=== PATIENT | male | born 1960 | race Hispanic/Latino ===

== ENCOUNTER 2017-02-03 21:37 | Inpatient (IN) | payer MEDICAID ==
[2017-02-03 22:53] LABS: BASO % 0.7 % (0.0-2.0); EOS # 0.2 K/uL (0.0-0.7); EOS % 2.7 % (0.0-4.0); HEMATOCRIT 37.6 % (35.0-51.0); LYMPH # 1.3 K/uL (1.0-4.3); LYMPH % 19.6 % (20.0-40.0); MEAN CORPUSCULAR HEMOGLOBIN 25.6 pg (27.0-31.0); MEAN CORPUSCULAR HGB CONC 32.8 g/dL (33.0-37.0); MEAN PLATELET VOLUME 8.8 fL (7.2-11.7); MONO # 0.6 K/uL (0.0-0.8); MONO % 8.1 % (0.0-10.0); NRBC % 0.2 % (0.0-2.0); RED CELL DISTRIBUTION WIDTH 17.2 % (11.5-14.5); WHITE BLOOD COUNT 6.8 K/uL (4.8-10.8)
[2017-02-03 23:03] LABS: RBC URINE 1 /hpf (0-3); URINE BILIRUBIN NEGATIVE (NEGATIVE); URINE BLOOD NEGATIVE (NEGATIVE); URINE COLOR Yellow (YELLOW); URINE GLUCOSE (UA) NORMAL (Normal); URINE KETONE NEGATIVE (NEGATIVE); URINE LEUKOCYTE ESTERASE NEG Leu/uL (Negative); URINE PROTEIN NEGATIVE (NEGATIVE); URINE UROBILINOGEN NORMAL mg/dL (0.2-1.0); WBC URINE 1 /hpf (0-5)
[2017-02-03 23:08] LABS: CHLORIDE 101 mmol/L (98-107)
[2017-02-03 23:09] LABS: POTASSIUM 3.8 mmol/L (3.6-5.2); SODIUM 138 mmol/L (132-148)
[2017-02-03 23:11] LABS: ALB/GLOB RATIO 1.1 (1.0-2.1); AST/SGOT 29 U/L (17-59); BILIRUBIN,TOTAL 0.5 mg/dL (0.2-1.3); CARBON DIOXIDE 27 mmol/L (22-30); GFR AFRICAN-AMERICAN > 60; TOTAL PROTEIN 7.4 g/dL (6.3-8.3)
[2017-02-03 23:12] LABS: ALKALINE PHOSPHATASE 61 U/L (38-126); ALT/SGPT 25 U/L (21-72); BLOOD UREA NITROGEN 21 mg/dL (9-20); GLUCOSE,RANDOM 85 mg/dL (75-110)
--- NOTE | 2017-02-03 23:21 | C.PDOC ---
History Of Present Illness 56 year old male presents to the ED with complaints of swelling to a chronic wound on the left lower medial aspect of the leg. Patient states the wound has been present for 8 months and thought the wound would resolve on its own but it has remained persistent. He notes he alternates his time between [place] and [place]. Patient saw his doctor in [place] two weeks ago and doctor suggested hyperbaric therapy for the wound. However, patient came to [place] and does not have a doctor here and could not follow up. He denies any chest pain, shortness of breath, fever, or chills. Time Seen by Provider: 02/03/17 22:34 Chief Complaint (Nursing): Lower Extremity Problem/Injury History Per: Patient History/Exam Limitations: no limitations Onset/Duration Of Symptoms: Persistent (8 months ) Current Symptoms Are (Timing): Still Present Recent travel outside of the [facility]: No Past Medical History Reviewed: Historical Data, Nursing Documentation, Vital Signs Vital Signs: Last Vital Signs Temp 97.5 F L 02/03/17 21:46 Pulse 54 L 02/03/17 23:18 Resp 19 02/03/17 23:18 BP 131/73 02/03/17 23:18 Pulse Ox 95 02/03/17 23:53 Family History: States: Unknown Family Hx - Social History Hx Alcohol Use: No Hx Substance Use: No - Immunization History Hx Tetanus Toxoid Vaccination: No Hx Influenza Vaccination: No Hx Pneumococcal Vaccination: No Review Of Systems Constitutional: Negative for: Fever, Chills, Sweats Cardiovascular: Negative for: Chest Pain, Palpitations Respiratory: Negative for: Cough, Shortness of Breath Gastrointestinal: Negative for: Nausea, Vomiting, Abdominal Pain, Diarrhea Musculoskeletal: Positive for: Leg Pain (left leg pain and swelling to wound on medial left lower leg ) Neurological: Negative for: Headache Physical Exam - Physical Exam Appears: Non-toxic, No Acute Distress Skin: Warm, Dry, Other (left leg is red, shallow wound present to the left lower medial aspect of the leg that appears chronic ) Head: Atraumatic Oral Mucosa: Moist Neck: Supple Chest: Symmetrical, No Deformity Cardiovascular: Rhythm Regular Respiratory: No Rales, No Rhonchi, No Stridor, No Wheezing Gastrointestinal/Abdominal: Soft, No Tenderness, No Distention, No Guarding, No Rebound Extremity: Swelling (swelling to left lower leg worse than patient usually has ) , Other (Venous stasis and chronic edema to left leg; statis pigmentation from the left knee down. ) ED Course And Treatment - Laboratory Results Result Diagrams: 02/03/17 22:50 02/03/17 22:50 Lab Interpretation: No Acute Changes O2 Sat by Pulse Oximetry: 95 Pulse Ox Interpretation: Normal - Radiology CXR: Interpreted by Me CXR Interpretation: Yes: No Acute Disease - Physician Consult Information Time Consulting Physician Contacted: 00:00 Physician Contacted: Magan Glover Outcome Of Conversation: Patient to be admitted for IV antibiotics for cellulitis and work-up of possible DVT. Disposition - Disposition Disposition: HOSPITALIZED Disposition Time: 00:01 Condition: STABLE - POA Present On Arrival: None - Clinical Impression Clinical Impression: Cellulitis and abscess of left leg, Stasis ulcer of ankle - Scribe Statement The provider has reviewed the documentation as recorded by the Scribe Stephanie Sen All medical record entries made by the Andresibvicente were at my direction and personally dictated by me. I have reviewed the chart and agree that the record accurately reflects my personal performance of the history, physical exam, medical decision making, and the department course for this patient. I have also personally directed, reviewed, and agree with the discharge instructions and disposition.
[2017-02-04 00:51] VITALS: RESP 20
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
[2017-02-04 08:12] LABS: BASO % 1.2 % (0.0-2.0); EOS # 0.2 K/uL (0.0-0.7); EOS % 5.6 % (0.0-4.0); HEMATOCRIT 36.8 % (35.0-51.0); LYMPH % 29.5 % (20.0-40.0); MEAN CELL VOLUME 78.1 fL (80.0-94.0); MEAN CORPUSCULAR HEMOGLOBIN 25.6 pg (27.0-31.0); MEAN CORPUSCULAR HGB CONC 32.8 g/dL (33.0-37.0); MEAN PLATELET VOLUME 8.7 fL (7.2-11.7); MONO # 0.4 K/uL (0.0-0.8); MONO % 10.6 % (0.0-10.0); NRBC % 0.1 % (0.0-2.0); RED CELL DISTRIBUTION WIDTH 16.7 % (11.5-14.5); WHITE BLOOD COUNT 3.5 K/uL (4.8-10.8)
--- NOTE | 2017-02-04 09:29 | RAD ---
PROCEDURE: CHEST RADIOGRAPH, 1 VIEW HISTORY: Shortness of breath COMPARISON: None available. FINDINGS: LUNGS: Biapical pleural thickening with upper lobe granulomatous changes. Mild venous congestion. Right hilar prominence. PLEURA: As above. CARDIOVASCULAR: Tortuous aorta. Mild cardiomegaly. OSSEOUS STRUCTURES: Degenerative changes in the spine and shoulders. VISUALIZED UPPER ABDOMEN: Normal. OTHER FINDINGS: None. IMPRESSION: Biapical pleural thickening with upper lobe granulomatous changes. Mild venous congestion. Right hilar prominence.
[2017-02-04 09:38] LABS: CHLORIDE 101 mmol/L (98-107); POTASSIUM 3.6 mmol/L (3.6-5.2); SODIUM 136 mmol/L (132-148)
[2017-02-04 09:40] LABS: AST/SGOT 31 U/L (17-59); BILIRUBIN,TOTAL 0.4 mg/dL (0.2-1.3); CARBON DIOXIDE 24 mmol/L (22-30); GFR AFRICAN-AMERICAN > 60
[2017-02-04 09:41] LABS: ALKALINE PHOSPHATASE 58 U/L (38-126); ALT/SGPT 28 U/L (21-72); BLOOD UREA NITROGEN 19 mg/dL (9-20); CALCIUM 8.1 mg/dl (8.6-10.4); GLUCOSE,RANDOM 104 mg/dL (75-110); PHOSPHOROUS 3.4 mg/dL (2.5-4.5); TOTAL PROTEIN 6.6 g/dL (6.3-8.3)
[2017-02-04 09:42] LABS: MAGNESIUM 1.8 mg/dL (1.6-2.3)
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
[2017-02-04] MEDS: Enoxaparin 40 mg Syringe SC SCH (10:49)
[2017-02-04] MEDS: Saccharomyces Boulardi 250 mg Cap PO SCH ×2 (11:37→17:13)
[2017-02-04] MEDS: Aztreonam 1 GM in Sodium Chloride 0.9% 100 ML IVPB SCH ×2 (13:54→20:11)
--- NOTE | 2017-02-04 14:13 | CP.PCM.CON ---
History of Present Illness - History of Present Illness History of Present Illness: Patient is a 56 y/o male seen bedside regarding left leg swelling, redness and a left ankle ulcer. Patient is seen resting in bed in [facility]. He states that yesterday his leg became very swollen, but mentions redness and discoloration has been chronic. Patient states the wound has been present for 8 months and started due to irritation caused by a shoe he was wearing. Patient relates a history of seeing several doctors and he was told that he has "venous stasis". States he has been offered many treatment options, including topical medications , compressive therapy, hyperbaric, but has not tried anything consistently because he believes it is best to "let it heal on its own." He notes he alternates his time between [place], [place] and [place], but has moved back here for the summer. Denies F/C/N/V/SOB. Review of Systems - Constitutional Constitutional: As Per HPI Past Patient History - Past Medical History & Family History Past Medical History?: Yes - Past Social History Smoking Status: Former Smoker - CARDIAC Hx Cardiac Disorders: No - PULMONARY Hx Respiratory Disorders: No - NEUROLOGICAL Hx Neurological Disorder: No - HEENT Hx HEENT Problems: No - RENAL Hx Chronic Kidney Disease: No - ENDOCRINE/METABOLIC Hx Endocrine Disorders: No - HEMATOLOGICAL/ONCOLOGICAL Hx Blood Disorders: No - INTEGUMENTARY Hx Dermatological Problems: No - MUSCULOSKELETAL/RHEUMATOLOGICAL Other/Comment: chronic left hip problem - GASTROINTESTINAL Hx Gastrointestinal Disorders: No - GENITOURINARY/GYNECOLOGICAL Hx Genitourinary Disorders: No - PSYCHIATRIC Hx Substance Use: No - SURGICAL HISTORY Hx Surgeries: Yes (Trauma) - ANESTHESIA Hx Anesthesia: Yes Hx Anesthesia Reactions: No Hx Malignant Hyperthermia: No Has any member of the family had a problem w/ anesthesia?: No Meds Allergies/Adverse Reactions: Allergies Allergy/AdvReac Type Severity Reaction Status Date / Time ceftriaxone [From Rocephin] Allergy ITCHING Verified 02/04/17 01:51 - Medications Medications: Current Medications Enoxaparin Sodium (Lovenox) 40 mg SC DAILY [facility] Last Admin: 02/04/17 10:49 Dose: 40 mg Famotidine (Pepcid) 20 mg PO BID [facility] Last Admin: 02/04/17 10:46 Dose: Not Given Vancomycin HCl 1 gm/ Sodium (Chloride) 250 mls @ 166.7 mls/hr IVPB Q24H [facility] Last Admin: 02/04/17 01:56 Dose: 166.7 mls/hr Aztreonam 1 gm/ Sodium (Chloride) 100 mls @ 200 mls/hr IVPB Q8H [facility] Last Admin: 02/04/17 13:54 Dose: 200 mls/hr Ketorolac Tromethamine (Toradol) 30 mg IV Q6 PRN PRN Reason: Pain, severe (8-10) Last Admin: 02/04/17 09:03 Dose: 30 mg Saccharomyces Boulardii (Florastor) 250 mg PO BID [facility] Last Admin: 02/04/17 11:37 Dose: Not Given Physical Exam - Constitutional Appears: No Acute Distress - Extremities Exam Additional comments: LLE exam: Derm: Diffuse moderate edema from foot to knee, with erythema and chronic hyperpigmentation from foot to tibial midshaft. Superficial ulceration inferior to medial malleolus with granular eschar, no drainage at this time, no malodor. Surrounding skin thin, shiny with diffuse xerosis. Vascular: DP pulse 2/4, PT pulse non-palpable secondary to wound, CFT <3sec, temperature unremarkable. Neuro: Gross sensation intact. MSK: MMT 4/5 in all directions, decreased ROM at the ankle joint, hammertoe deformities present 2-5. Pain on compression of calf. - Neurological Exam Neurological exam: Alert, Oriented x3 Results - Vital Signs Recent Vital Signs: Last Vital Signs Temp 97.7 F 02/04/17 08:27 Pulse 54 L 02/04/17 08:27 Resp 20 02/04/17 08:27 BP 107/64 02/04/17 08:27 Pulse Ox 96 02/04/17 08:27 - Labs Result Diagrams: 02/04/17 07:57 02/04/17 07:57 Labs: Laboratory Results - last 24 hr 02/04/17 02/04/17 07:57 07:57 WBC 3.5 L RBC 4.71 Hgb 12.1 Hct 36.8 MCV 78.1 L MCH 25.6 L MCHC 32.8 L RDW 16.7 H Plt Count 167 MPV 8.7 Neut % (Auto) 53.1 Lymph % (Auto) 29.5 Humphreys % (Auto) 10.6 H Eos % (Auto) 5.6 H Baso % (Auto) 1.2 Neut # 1.8 Lymph # 1.0 Humphreys # 0.4 Eos # 0.2 Baso # 0.0 Sodium 136 Potassium 3.6 Chloride 101 Carbon Dioxide 24 Anion Gap 15 BUN 19 Creatinine 0.7 L Est GFR ( Amer) > 60 Est GFR (Non-Af Amer) > 60 Random Glucose 104 Calcium 8.1 L Phosphorus 3.4 Magnesium 1.8 Total Bilirubin 0.4 AST 31 ALT 28 Alkaline Phosphatase 58 Total Protein 6.6 Albumin 3.3 L Globulin 3.2 Albumin/Globulin Ratio 1.0 Assessment & Plan - Assessment and Plan (Free Text) Assessment: 56 y/o male with left ankle ulceration and chronic changes secondary to venous stasis; rule out DVT. Plan: -evaluated and treated with all questions addressed and answered. -discussed with Dr. Landa. -explained to patient etiology of disease and ideal treatment which consists of compressive dressing and topical medication, but patient refusing any treatment of ulceration at this time and acknowledges he is refusing recommended treatment. -will await results of Venous duplex to rule out DVT. -gave patient aloe moisturizer and educated to use on dry skin, but not on ulceration. -will continue to monitor while in hospital.
--- NOTE | 2017-02-04 16:46 | RAD ---
PROCEDURE: Left Ankle Radiographs. HISTORY: r/o osteo COMPARISON: None FINDINGS: BONES: Mild generalized osteopenia. . No fracture. No periosteal reaction or gross cortical interruption appreciated JOINTS: Normal. No osteoarthritis. Ankle mortise maintained. Talar dome intact SOFT TISSUES: Diffuse soft tissue mild edema of the overall subcutaneous tissues -lymphedema and/or cellulitis is consistent with this. Correlate clinically. No specific ulcer site is provided or grossly appreciated OTHER FINDINGS: None. IMPRESSION: No gross radiographic evidence of osteomyelitis. . Lymphedema and/or cellulitis.
--- NOTE | 2017-02-04 16:49 | RAD ---
PROCEDURE: Bilateral Feet Radiographs. HISTORY: r/o osteo COMPARISON: None. FINDINGS: BONES: Right Foot: Normal. No fracture. Left Foot: Normal. No fracture. No gross periosteal reaction. No gross cortical interruption JOINTS: Right Foot: Normal. No osteoarthritis. Left Foot: Normal. No osteoarthritis. SOFT TISSUES: Diffuse lower leg and diffuse foot soft tissue swelling appearing mostly confined to the subcutaneous tissues. No history of any focal ulcers provided. No gross focal ulceration is appreciated OTHER FINDINGS: None. IMPRESSION: No gross periosteal or gross cortical interruption. No discrete ulcer appreciated. No history provided of a discrete ulcer Bilateral lower leg and bilateral foot nonspecific soft tissue edema in a finding consistent with lymphedema and/or cellulitis. Correlate clinically.
--- NOTE | 2017-02-04 16:50 | RAD ---
PROCEDURE: Radiographs of the left tibia and fibula. HISTORY: r/o osteo COMPARISON: None available. TECHNIQUE: Frontal and lateral views obtained. FINDINGS: BONES: No fracture or destructive lesion. No periosteal reaction or cortical destruction JOINT SPACES: Unremarkable. OTHER FINDINGS: No gross soft tissue ulceration seen. There is diffuse and circumferential Ene subcutaneous edema some with either lymphedema and/or cellulitis. Some of the serpiginous subcutaneous soft tissue densities of the proximal lower leg bordering the tibia may relate to varicosities here. Correlate clinically IMPRESSION: No periosteal reaction or cortical interruption seen to suggest osteomyelitis. Soft tissue changes consistent with diffuse lymphedema and/or cellulitis -correlate clinically Possible proximal medial subcutaneous varicosities
[2017-02-04 17:48] LABS: THYROID STIMULATING HORMONE 0.25 mIU/L (0.46-4.68)
[2017-02-04 18:22] LABS: FOLATE 5.7 ng/mL
[2017-02-05] MEDS: Aztreonam 1 GM in Sodium Chloride 0.9% 100 ML IVPB SCH ×2 (02:33→11:00)
[2017-02-05 07:17] LABS: EOS # 0.1 K/uL (0.0-0.7); EOS % 3.9 % (0.0-4.0); HEMATOCRIT 36.8 % (35.0-51.0); LYMPH # 1.1 K/uL (1.0-4.3); LYMPH % 31.4 % (20.0-40.0); MEAN CELL VOLUME 78.4 fL (80.0-94.0); MEAN CORPUSCULAR HEMOGLOBIN 25.1 pg (27.0-31.0); MEAN PLATELET VOLUME 9.3 fL (7.2-11.7); MONO # 0.4 K/uL (0.0-0.8); MONO % 10.2 % (0.0-10.0); NRBC % 0.2 % (0.0-2.0); RED CELL DISTRIBUTION WIDTH 17.3 % (11.5-14.5); WHITE BLOOD COUNT 3.6 K/uL (4.8-10.8)
[2017-02-05 07:38] LABS: CHLORIDE 108 mmol/L (98-107); POTASSIUM 4.1 mmol/L (3.6-5.2); SODIUM 140 mmol/L (132-148)
[2017-02-05 07:40] LABS: BILIRUBIN,TOTAL 0.5 mg/dL (0.2-1.3); CARBON DIOXIDE 24 mmol/L (22-30); GFR AFRICAN-AMERICAN > 60
[2017-02-05 07:41] LABS: ALKALINE PHOSPHATASE 51 U/L (38-126); ALT/SGPT 30 U/L (21-72); AST/SGOT 32 U/L (17-59); BLOOD UREA NITROGEN 21 mg/dL (9-20); CALCIUM 8.5 mg/dl (8.6-10.4); GLUCOSE,RANDOM 91 mg/dL (75-110); PHOSPHOROUS 3.4 mg/dL (2.5-4.5); TOTAL PROTEIN 6.4 g/dL (6.3-8.3)
[2017-02-05] MEDS: Enoxaparin 40 mg Syringe SC SCH (10:31)
[2017-02-05] MEDS: Saccharomyces Boulardi 250 mg Cap PO SCH (11:00)
[2017-02-05 17:00] VITALS: BP 115/57; PULSE 58; TEMP 98.5; O2SAT 96
--- NOTE | 2017-02-05 23:12 | CP.PCM.DIS ---
Provider - Provider Date of Admission: 02/04/17 00:02 Attending physician: Genia Torres DO Time Spent in preparation of Discharge (in minutes): 45 Diagnosis - Discharge Diagnosis (1) Cellulitis and abscess of left leg Status: Acute (2) Stasis ulcer of ankle Status: Acute Hospital Course - Lab Results Lab Results: Micro Results 02/04/17 08:30 Blood-Venous Blood Culture - Preliminary NO GROWTH AFTER 24 HOURS 02/04/17 07:57 Blood-Venous Blood Culture - Preliminary NO GROWTH AFTER 24 HOURS Most Recent Lab Values WBC 3.6 K/uL (4.8-10.8) L 02/05/17 07:04 RBC 4.69 Mil/uL (4.40-5.90) 02/05/17 07:04 Hgb 11.8 g/dL (12.0-18.0) L 02/05/17 07:04 Hct 36.8 % (35.0-51.0) 02/05/17 07:04 MCV 78.4 fL (80.0-94.0) L 02/05/17 07:04 MCH 25.1 pg (27.0-31.0) L 02/05/17 07:04 MCHC 32.0 g/dL (33.0-37.0) L 02/05/17 07:04 RDW 17.3 % (11.5-14.5) H 02/05/17 07:04 Plt Count 143 K/uL (130-400) 02/05/17 07:04 MPV 9.3 fL (7.2-11.7) 02/05/17 07:04 Neut % (Auto) 53.5 % (50.0-75.0) 02/05/17 07:04 Lymph % (Auto) 31.4 % (20.0-40.0) 02/05/17 07:04 [place] % (Auto) 10.2 % (0.0-10.0) H 02/05/17 07:04 Eos % (Auto) 3.9 % (0.0-4.0) 02/05/17 07:04 Baso % (Auto) 1.0 % (0.0-2.0) 02/05/17 07:04 Neut # 1.9 K/uL (1.8-7.0) 02/05/17 07:04 Lymph # 1.1 K/uL (1.0-4.3) 02/05/17 07:04 [place] # 0.4 K/uL (0.0-0.8) 02/05/17 07:04 Eos # 0.1 K/uL (0.0-0.7) 02/05/17 07:04 Baso # 0.0 K/uL (0.0-0.2) 02/05/17 07:04 Sodium 140 mmol/L (132-148) 02/05/17 07:04 Potassium 4.1 mmol/L (3.6-5.2) 02/05/17 07:04 Chloride 108 mmol/L (98-107) H 02/05/17 07:04 Carbon Dioxide 24 mmol/L (22-30) 02/05/17 07:04 Anion Gap 12 (10-20) 02/05/17 07:04 BUN 21 mg/dL (9-20) H 02/05/17 07:04 Creatinine 0.8 MG/DL (0.8-1.5) 02/05/17 07:04 Est GFR ( Amer) > 60 02/05/17 07:04 Est GFR (Non-Af Amer) > 60 02/05/17 07:04 Random Glucose 91 mg/dL (75-110) 02/05/17 07:04 Hemoglobin A1c 5.5 % (4.2-6.5) 02/04/17 17:02 Calcium 8.5 mg/dl (8.6-10.4) L 02/05/17 07:04 Phosphorus 3.4 mg/dL (2.5-4.5) 02/05/17 07:04 Magnesium 2.0 mg/dL (1.6-2.3) 02/05/17 07:04 Total Bilirubin 0.5 mg/dL (0.2-1.3) 02/05/17 07:04 AST 32 U/L (17-59) 02/05/17 07:04 ALT 30 U/L (21-72) 02/05/17 07:04 Alkaline Phosphatase 51 U/L (38-126) 02/05/17 07:04 NT-Pro-B Natriuret Pep 70.0 pg/mL (0-900) 02/03/17 22:50 Total Protein 6.4 g/dL (6.3-8.3) 02/05/17 07:04 Albumin 3.2 g/dL (3.5-5.0) L 02/05/17 07:04 Globulin 3.2 gm/dL (2.2-3.9) 02/05/17 07:04 Albumin/Globulin Ratio 1.0 (1.0-2.1) 02/05/17 07:04 Vitamin B12 372 pg/mL (239-931) 02/04/17 17:02 Folate 5.7 ng/mL 02/04/17 17:02 Free T4 0.90 ng/dL (0.78-2.19) 02/05/17 13:43 TSH 3rd Generation 0.30 mIU/L (0.46-4.68) L 02/05/17 13:43 Urine Color Yellow (YELLOW) 02/03/17 22:43 Urine Clarity Clear (Clear) 02/03/17 22:43 Urine pH 5.0 (5.0-8.0) 02/03/17 22:43 Ur Specific [place] 1.020 (1.003-1.030) 02/03/17 22:43 Urine Protein Negative mg/dL (NEGATIVE) 02/03/17 22:43 Urine Glucose (UA) Normal mg/dL (Normal) 02/03/17 22:43 Urine Ketones Negative mg/dL (NEGATIVE) 02/03/17 22:43 Urine Blood Negative (NEGATIVE) 02/03/17 22:43 Urine Nitrate Negative (NEGATIVE) 02/03/17 22:43 Urine Bilirubin Negative (NEGATIVE) 02/03/17 22:43 Urine Urobilinogen Normal mg/dL (0.2-1.0) 02/03/17 22:43 Ur Leukocyte Esterase Neg Elijah/uL (Negative) 02/03/17 22:43 Urine WBC (Auto) 1 /hpf (0-5) 02/03/17 22:43 Urine RBC (Auto) 1 /hpf (0-3) 02/03/17 22:43 - Hospital Course Hospital Course: As per admission: CC: "Leg is swollen" HPI: 56 year old male presents to the ED with complaints of swelling to a chronic wound on the left lower medial aspect of the leg. He states his leg has become very swollen and red starting at 6PM yesterday. Patient states the wound has been present for 8 months and thought the wound would resolve on its own but it has remained persistent. He notes he alternates his time between [place] and [place] but has now moved back here. Patient saw his doctor in [place] two weeks ago and doctor suggested hyperbaric therapy for the wound. However, patient came to [place] and does not have a doctor here and could not follow up. He was told that he has "venous stasis". He denies any chest pain, shortness of breath, fever, or chills. He has not other complaints. Hospital Course: Patient was admitted on 02/04/17 with left Foot X-ray showing no gross periosteal or gross cortical interruption. No discrete ulcer appreciated. Bilateral lower leg and bilateral lower foot nonspecific soft tissue edema in a finding consist with lymph edema and or cellulitis. Left Ankle X-ray showed no gross radiographic evidence of osteomyelitis and left Tib/ Fib X-ray showed no periosteal reaction or cortical interruption seen to suggest osteomyelitis. Soft tissue changes consistent with diffuse lymphedema and or cellulitis. Patient was then started on Vancomycin 1gram IVPB daily and Aztreonam 1gm IVPB Q8H. Dr. Landa, a laundry assistant was consulted, who recommended compressive dressing and topical medication, but patient refused treatment. Upon refusing appropriate treatment as recommended by podiatry, patient was discharged to complete a 5 days course of Bactrim (DS) PO BID amd to follow up with Dr. Landa; patient agreed. Discharge Exam - Head Exam Head Exam: ATRAUMATIC, NORMAL INSPECTION, NORMOCEPHALIC - Eye Exam Eye Exam: EOMI, Normal appearance - ENT Exam ENT Exam: Mucous Membranes Moist, Normal Exam - Respiratory Exam Respiratory Exam: Clear to PA & Lateral, NORMAL BREATHING PATTERN - Cardiovascular Exam Cardiovascular Exam: REGULAR RHYTHM, +S1, +S2 - GI/Abdominal Exam GI & Abdominal Exam: Normal Bowel Sounds, Soft - Extremities Exam Extremities exam: normal capillary refill, normal inspection - Neurological Exam Neurological exam: Alert, Oriented x3 - Psychiatric Exam Psychiatric exam: Normal Affect, Normal Mood - Skin Skin Exam: Dry, Normal Color, Warm Discharge Plan - Discharge Medications Prescriptions: oxyCODONE/Acetaminophen [Percocet 5/325 mg Tab] 1 ea PO Q6H #20 tab Sulfamethoxazole/Trimethoprim [Bactrim DS 800 mg-160 mg] 1 tab PO BID #10 tab - Follow Up Plan Condition: STABLE Disposition: HOME/ ROUTINE Instructions: Sulfamethoxazole/Trimethoprim (By mouth), Oxycodone/ Acetaminophen (By mouth), Cellulitis (DC), Stasis Dermatitis (DC), Venous Insufficiency (DC), Abscess (GEN) Additional Instructions: Discharge patient to home as per Dr. Torres. Please take the following new antibiotic for 5 days: Bactrim DS 1 tablet by mouth twice a day for 5 day. Please resume all other home medications as prescribed. Patient given 4 day supply of Percocet 5/325 mg PO Q6H PRN for pain. Please follow up with primary care doctor at the [facility] within one week of discharge to establish care. Call: [phone]. Patient will need Podiatry referral at [facility] Return to the emergency room if symptoms return or worsen. Instruction explained to patient who understands and agrees. Referrals: [facility] [Provider Group] Cristal Landa DPM [Staff Provider] -
--- NOTE | 2017-02-06 10:48 | VASCLAB ---
PROCEDURE: Lower Extremity Venous Duplex Exam. HISTORY: r/o dvt PRIORS: None. TECHNIQUE: Bilateral common femoral, femoral, popliteal and posterior tibial, peroneal and great saphenous veins were evaluated. Flow was assessed with color Doppler, compressibility, assessment of phasic flow and augmentation response. Report prepared by Barry Paz, BS, RVT FINDINGS: RIGHT: 1. Common Femoral Vein: 1.1. Compressibility - Fully compressible: Thrombus - None : Flow - Phasic: Augmentation -Normal: Reflux - None. 2. Femoral Vein: 2.1. Compressibility - Fully compressible: Thrombus - None : Flow - Phasic: Augmentation -Normal: Reflux - None. 3. Popliteal Vein: 3.1. Compressibility - Fully compressible: Thrombus - None : Flow - Phasic: Augmentation -Normal: Reflux - None. 4. Posterior Tibial Vein: 4.1. Compressibility - Fully compressible: Thrombus - None: Flow - Phasic: Augmentation -Normal: Reflux - None. 5. Peroneal Vein: 5.1. Compressibility - Fully compressible: Thrombus - None: Flow - Phasic: Augmentation -Normal: Reflux - None. 6. Great Saphenous Vein: 6.1. Compressibility - Fully compressible: Thrombus - None: Flow - Phasic: Augmentation - Normal: Reflux - None. LEFT: 1. Common Femoral Vein: 1.1. Compressibility - Fully compressible: Thrombus - None: Flow - Phasic: Augmentation -Normal: Reflux - None. 2. Femoral Vein: 2.1. Compressibility - Fully compressible: Thrombus - None: Flow - Phasic: Augmentation -Normal: Reflux - None. 3. Popliteal Vein: 3.1. Compressibility - Fully compressible: Thrombus - None : Flow - Phasic: Augmentation -Normal: Reflux - None. 4. Posterior Tibial Vein: 4.1. Compressibility - Fully compressible: Thrombus - None: Flow - Phasic: Augmentation -Normal: Reflux - None. 5. Peroneal Vein: 5.1. Compressibility - Fully compressible: Thrombus - None: Flow - Phasic: Augmentation -Normal: Reflux - None. 6. Great Saphenous Vein: 6.1. Compressibility - Fully compressible: Thrombus - None: Flow - Phasic: Augmentation - Normal: Reflux - Severe. OTHER FINDINGS: Right: None significant. Left: Severe valvular incompetence of the left greater saphenous vein. IMPRESSION: Right: No evidence of deep or superficial vein thrombosis of the right lower extremity. Normal valve function noted of the right side. Left: No evidence of deep or superficial vein thrombosis of the left lower extremity.
== END 2017-02-05 17:05 | disposition home or self-care (01) | DRG 277 ==
LOC: C.ER 21:37 → C.3T 02-04 00:02
PROVIDERS: ADMIT Hospitalist; ATTEND Hospitalist
DX: L02.416 Cutaneous abscess of left lower limb (principal); L97.329 Non-pressure chronic ulcer of left ankle with unspecified severity; L03.116 Cellulitis of left lower limb; Z87.891 Personal history of nicotine dependence; I87.8 Other specified disorders of veins; I89.0 Lymphedema, not elsewhere classified; G89.29 Other chronic pain

== ENCOUNTER 2017-03-27 22:42 | Emergency (ER) | payer MEDICAID ==
[2017-03-27 23:05] VITALS: BP 133/81; PULSE 76; RESP 16; TEMP 98.5; O2SAT 98
--- NOTE | 2017-03-27 23:21 | C.PDOC ---
History Of Present Illness 56 y/o male history of chronic left venous stasis ulcer presents to ED with left leg pain and swelling. Patient states the ulcer started as a blister from his shoes one year ago and has gotten bigger and not healed since then. He reports being treated by his primary and has not seen podiatry. Denies fever, numbness or weakness left lower extremity, calf pain, recent travel, chest pain , sob. Time Seen by Provider: 03/27/17 23:17 Chief Complaint (Nursing): Lower Extremity Problem/Injury History Per: Patient History/Exam Limitations: no limitations Onset/Duration Of Symptoms: Hrs (left leg pain and swelling ), Persistent ( chronic left venous stasis ulcer) Current Symptoms Are (Timing): Still Present Recent travel outside of the [place]: No Additional History Per: Prior Records Past Medical History Reviewed: Historical Data, Nursing Documentation, Vital Signs Vital Signs: Last Vital Signs Temp 98.5 F 03/27/17 23:02 Pulse 76 03/27/17 23:02 Resp 16 03/27/17 23:02 BP 133/81 03/27/17 23:02 Pulse Ox 98 03/28/17 01:16 - Medical History PMH: Arthritis (BACK) Family History: States: Unknown Family Hx - Social History Hx Alcohol Use: Yes Hx Substance Use: No - Immunization History Hx Tetanus Toxoid Vaccination: No Hx Influenza Vaccination: No Hx Pneumococcal Vaccination: No Review Of Systems Constitutional: Negative for: Fever Cardiovascular: Negative for: Chest Pain Respiratory: Negative for: Shortness of Breath Musculoskeletal: Positive for: Leg Pain (left leg pain ), Other (chronic left venous stasis ulcer) Neurological: Negative for: Weakness, Numbness Physical Exam - Physical Exam Appears: Non-toxic, No Acute Distress Skin: Warm, Dry Head: Atraumatic Eye(s): bilateral: Normal Inspection, EOMI Oral Mucosa: Moist Neck: Supple Chest: Symmetrical Cardiovascular: Rhythm Regular, No Murmur Respiratory: Normal Breath Sounds, No Rhonchi, No Wheezing Extremity: Normal ROM, Tenderness (left lower extremity tender to palpation with chronic skin changes. ), Pedal Edema (left), No Calf Tenderness, No Deformity, Swelling (left lower extremity edematous ), Other (5x4cm dried scabbed ulceration noted medial left malleolus surrounding erythema. No drainage or odor noted.) Neurological/Psych: Oriented x3, Normal Speech, Normal Cognition ED Course And Treatment O2 Sat by Pulse Oximetry: 98 (room air ) Progress Note: Patient was given bactrim and ultram. Patient was instructed on appropriate wound care. Medical Decision Making Medical Decision Makin56 year old male with chronic venous stasis and ulcer. Patient complains of pain and swelling, he does not admit to recent hospital visit to [place]. When asked further about the tests, he states they did not seem to care for his pain or treat him appropriately. Prior records reviewed: Patient recently seen at [facility] 03/23 for similar complaints. Patient had full workup including labs, xray, venous Doppler and podiatry consult with resident and Dr. Landa. Labs reviewed WBC @ 5.8 X-rays of the left ankle taken/reviewed: no soft tissue emphysema, no pathological fractures, no erosive changes indicating acute OM noted secondary to ulceration on the left ankle Left lower extremity ultrasound ordered - no impression of DVT noted Patient treated witih Bactrim and was discharged instructed to follow up at clinic with Dr Landa. Plan: Tramadol, Bactrim DS, Wound care with sterile dressing and ki bandage. In my opinion patient appears to be non-compliant and bed seeking. RN informs me the patient is refusing dressing and ki bandage. After patient was treated with meds he is stable for discharge. Patient instructed to follow up with podiatry clinic. Disposition Counseled Patient/Family Regarding: Need For Followup - Disposition Disposition: HOME/ ROUTINE Disposition Time: 23:39 Condition: STABLE Additional Instructions: Please take the following antibiotic for 7 days: Bactrim DS 1 tablet by mouth twice a day Please resume all other home medications as prescribed. Take Tramadol for any severe pain as needed Please follow up with primary care doctor at the [facility] within one week of discharge to establish care. Call: [phone]. Patient will need Podiatry referral at [facility] Return to the emergency room if symptoms return or worsen. Prescriptions: Sulfamethoxazole/Trimethoprim [Bactrim DS 800 mg-160 mg] 1 tab PO BID #14 tab traMADol [Ultram] 50 mg PO Q12 #10 tab Instructions: Stasis Dermatitis (ED), Venous Insufficiency (GEN) Forms: [employer] (Spanish) - POA Present On Arrival: None - Clinical Impression Clinical Impression: Stasis ulcer of ankle, Venous insufficiency - PA / HIGH LIFT OPERATOR / Resident Statement MD/DO has reviewed & agrees with the documentation as recorded. - Scribe Statement The provider has reviewed the documentation as recorded by the Andresibvicente Sen All medical record entries made by the Disha were at my direction and personally dictated by me. I have reviewed the chart and agree that the record accurately reflects my personal performance of the history, physical exam, medical decision making, and the department course for this patient. I have also personally directed, reviewed, and agree with the discharge instructions and disposition.
[2017-03-27] MEDS ORDERED: Tmp-Smz 800 mg-160 mg DS Tab PO STA (23:24)
[2017-03-27] MEDS ORDERED: Tmp-Smz 800 mg-160 mg DS Tab ONE (23:32)
== END 2017-03-28 00:41 | disposition home or self-care (01) ==
LOC: C.ER 22:42
DX: I87.2 Venous insufficiency (chronic) (peripheral) (principal)